=== PATIENT | male | born 1955 | race Caucasian/White ===

== ENCOUNTER 2017-05-11 16:55 | Emergency (ER) | payer MEDICARE, OTHER ==
[2017-05-11 16:56] VITALS: BMI 24.7
[2017-05-11 17:27] VITALS: BP 108/68; PULSE 58; RESP 18; TEMP 98; O2SAT 96
== END 2017-05-11 18:16 | disposition left against medical advice (07) ==
LOC: C.ER 16:55
DX: Z02.89 Encounter for other administrative examinations (principal); M79.603 Pain in arm, unspecified

== ENCOUNTER 2017-06-22 07:13 | Emergency (ER) | payer MEDICARE, OTHER ==
[2017-06-22 07:14] VITALS: BMI 24.7
[2017-06-22 07:26] VITALS: RESP 18
--- NOTE | 2017-06-22 07:42 | C.PDOC ---
History Of Present Illness 62-year-old homeless male, PMHx includes Schizophrenia, presents to the emergency department, stating "My left arm is jumping." Denies nausea/vomiting. No fever. Time Seen by Provider: 06/22/17 07:20 Chief Complaint (Nursing): Upper Extremity Problem/Injury History Per: Patient History/Exam Limitations: no limitations Onset/Duration Of Symptoms: Days Current Symptoms Are (Timing): Gone Quality: Dull Severity: None Exacerbating Factor(s): Nothing Recent travel outside of the [place]: No Past Medical History Reviewed: Historical Data, Nursing Documentation, Vital Signs Vital Signs: Last Vital Signs Temp 97.6 F 06/22/17 09:17 Pulse 53 L 06/22/17 09:17 Resp 18 06/22/17 07:19 BP 123/78 06/22/17 09:17 Pulse Ox 99 06/22/17 09:17 - Medical History PMH: Arthritis, Asthma, Cardia Arrhythmia (Bradycardia), CVA, Depression, HTN, Hyperlipidemia, Schizophrenia Denies: Chronic Kidney Disease [facility]) Family History: States: No Known Family Hx - Social History Hx Tobacco Use: Yes Hx Alcohol Use: No Hx Substance Use: No - Immunization History Hx Tetanus Toxoid Vaccination: No Hx Influenza Vaccination: No Hx Pneumococcal Vaccination: No Review Of Systems Except As Marked, All Systems Reviewed And Found Negative. Constitutional: Negative for: Fever Cardiovascular: Negative for: Chest Pain Gastrointestinal: Negative for: Vomiting Physical Exam - Physical Exam Appears: Non-toxic, No Acute Distress Skin: Warm, Dry, No Rash Head: Atraumatic, Normacephalic Eye(s): bilateral: Normal Inspection Nose: Normal Oral Mucosa: Moist Lips: Normal Appearing Neck: Normal ROM Cardiovascular: Rhythm Regular Respiratory: Normal Breath Sounds, No Accessory Muscle Use Gastrointestinal/Abdominal: Soft Extremity: Normal ROM, No Tenderness, No Deformity, No Swelling Pulses: Left Radial: Normal, Right Radial: Normal Neurological/Psych: Oriented x3, Normal Speech Gait: Steady ED Course And Treatment - Laboratory Results Result Diagrams: 06/22/17 07:56 06/22/17 07:56 Lab Interpretation: Normal O2 Sat by Pulse Oximetry: 98 Progress Note: Labs ordered. On re-evaluation ambulating with steady gait Reassessment Condition: Improved Disposition Counseled Patient/Family Regarding: Studies Performed, Diagnosis, Need For Followup - Disposition [facility] Disposition: HOME/ ROUTINE Disposition Time: 09:15 Condition: STABLE Additional Instructions: Follow up with clinic for further evaluation Instructions: Muscle Spasm (ED) Forms: [facility] (Yakut) Print Language: NEPALI - POA Present On Arrival: None - Clinical Impression Clinical Impression: Muscle strain, Muscle spasm - Scribe Statement The provider has reviewed the documentation as recorded by the Scribe (Joce Gunn) All medical record entries made by the Scribe were at my direction and personally dictated by me. I have reviewed the chart and agree that the record accurately reflects my personal performance of the history, physical exam, medical decision making, and the department course for this patient. I have also personally directed, reviewed, and agree with the discharge instructions and disposition.
[2017-06-22 08:00] LABS: BASO # 0.1 K/uL (0.0-0.2); BASO % 0.9 % (0.0-2.0); EOS # 0.2 K/uL (0.0-0.7); EOS % 2.4 % (0.0-4.0); HEMATOCRIT 42.2 % (35.0-51.0); LYMPH # 1.5 K/uL (1.0-4.3); LYMPH % 22.7 % (20.0-40.0); MEAN CELL VOLUME 88.2 fL (80.0-94.0); MEAN CORPUSCULAR HEMOGLOBIN 29.1 pg (27.0-31.0); MEAN CORPUSCULAR HGB CONC 33.1 g/dL (33.0-37.0); MEAN PLATELET VOLUME 8.2 fL (7.2-11.7); MONO # 0.5 K/uL (0.0-0.8); MONO % 7.5 % (0.0-10.0); RED CELL DISTRIBUTION WIDTH 12.3 % (11.5-14.5); WHITE BLOOD COUNT 6.5 K/uL (4.8-10.8)
[2017-06-22 08:08] LABS: CHLORIDE 103 mmol/L (98-107); SODIUM 142 mmol/L (132-148)
[2017-06-22 08:09] LABS: POTASSIUM 4.1 mmol/L (3.6-5.2)
[2017-06-22 08:11] LABS: GFR AFRICAN-AMERICAN > 60
[2017-06-22 08:12] LABS: BLOOD UREA NITROGEN 13 mg/dL (9-20); CALCIUM 8.5 mg/dl (8.6-10.4); CARBON DIOXIDE 26 mmol/L (22-30); GLUCOSE,RANDOM 117 mg/dL (75-110)
[2017-06-22 09:18] VITALS: BP 123/78; PULSE 53; TEMP 97.6
[2017-06-22 09:50] VITALS: O2SAT 98
== END 2017-06-22 09:45 | disposition home or self-care (01) ==
LOC: C.ER 07:13
DX: S46.912A Strain of unspecified muscle, fascia and tendon at shoulder and upper arm level, left arm, initial encounter (principal); X58.XXXA Exposure to other specified factors, initial encounter; M62.838 Other muscle spasm; Z59.0 Homelessness

== ENCOUNTER 2018-06-28 16:43 | Inpatient (IN) | payer MEDICARE, MEDICAID ==
[2018-06-28 16:43] VITALS: BMI 24.7
[2018-06-28 17:22] LABS: BASO # 0.1 K/uL (0.0-0.2); BASO % 0.8 % (0.0-2.0); EOS # 0.3 K/uL (0.0-0.7); EOS % 2.8 % (0.0-4.0); LYMPH # 1.7 K/uL (1.0-4.3); LYMPH % 14.9 % (20.0-40.0); MEAN CELL VOLUME 89.5 fL (80.0-94.0); MEAN CORPUSCULAR HEMOGLOBIN 30.1 pg (27.0-31.0); MEAN CORPUSCULAR HGB CONC 33.7 g/dL (33.0-37.0); MEAN PLATELET VOLUME 8.4 fL (7.2-11.7); MONO # 0.8 K/uL (0.0-0.8); MONO % 6.9 % (0.0-10.0); NEUT # 8.6 K/uL (1.8-7.0); NEUT % 74.6 % (50.0-75.0); NRBC % 0.1 % (0.0-2.0); RBC 5.35 Mil/uL (4.40-5.90); RED CELL DISTRIBUTION WIDTH 13.2 % (11.5-14.5)
[2018-06-28 17:25] LABS: HEMOGLOBIN 16.1 g/dL (12.0-18.0); WHITE BLOOD COUNT 11.6 K/uL (4.8-10.8)
[2018-06-28 17:34] LABS: URINE BILIRUBIN NEGATIVE (NEGATIVE); URINE BLOOD NEGATIVE (NEGATIVE); URINE CLARITY Hazy (Clear); URINE COLOR Yellow (YELLOW); URINE GLUCOSE (UA) NORMAL (Normal); URINE HYALINE CAST 0-2 /lpf (0-2); URINE LEUKOCYTE ESTERASE NEG Leu/uL (Negative); URINE PROTEIN NEGATIVE (NEGATIVE); URINE UROBILINOGEN NORMAL mg/dL (0.2-1.0)
--- NOTE | 2018-06-28 17:35 | C.PDOC ---
History Of Present Illness 63 year old male presents to the ED complaining suicidal ideation status post use of cocaine last night. Patient denies HI, chest pain, headaches, abdominal pain, or any other symptoms. Time Seen by Provider: 06/28/18 16:59 Chief Complaint (Nursing): Psychiatric Evaluation History Per: Patient History/Exam Limitations: no limitations Onset/Duration Of Symptoms: Mins Current Symptoms Are (Timing): Still Present Suicide/Self Injury Attempted (Context): None Modifying Factor(s): Cocaine Associated Symptoms: Suicidal Thoughts Past Medical History Reviewed: Historical Data, Nursing Documentation, Vital Signs Vital Signs: Last Vital Signs Temp 98 F 06/28/18 16:48 Pulse 85 06/28/18 16:48 Resp 16 06/28/18 16:48 BP 95/65 L 06/28/18 16:48 Pulse Ox 99 06/28/18 18:51 - Medical History PMH: Arthritis, Asthma, Cardia Arrhythmia (Bradycardia), CVA, Depression, HTN, Hyperlipidemia, Schizophrenia Denies: Chronic Kidney Disease Surgical History: No Surg Hx - [facility] GROUP PSYCHOTHERAPY (01/27/17) Family History: States: No Known Family Hx - Social History Hx Tobacco Use: Yes Hx Alcohol Use: Yes Hx Substance Use: Yes - Immunization History Hx Tetanus Toxoid Vaccination: No Hx Influenza Vaccination: No Hx Pneumococcal Vaccination: No Review Of Systems Except As Marked, All Systems Reviewed And Found Negative. Psych: Positive for: Suicidal ideation Physical Exam - Physical Exam Appears: Non-toxic, No Acute Distress Skin: Warm, Dry Head: Atraumatic, Normacephalic Eye(s): bilateral: Normal Inspection Nose: Normal Oral Mucosa: Moist Neck: Supple Chest: Symmetrical Cardiovascular: Rhythm Regular, No Murmur Respiratory: Normal Breath Sounds, No Rales, No Rhonchi, No Wheezing Extremity: Bilateral: Atraumatic, Normal Color And Temperature, Normal ROM Neurological/Psych: Oriented x3 Gait: Steady ED Course And Treatment - Laboratory Results Result Diagrams: 06/28/18 17:16 06/28/18 17:16 ECG: Interpreted By Me, Viewed By Me ECG Rhythm: Sinus Rhythm ECG Interpretation: No Acute Changes Interpretation Of ECG: normal intervals, normal axis, no st/t abnormalities. Rate From EC O2 Sat by Pulse Oximetry: 99 (RA) Pulse Ox Interpretation: Normal Medical Decision Making Medical Decision Making: Impression: suicidal ideation Orders: - Labs 1802 Patient is medically clear for Crisis. 1900 case s/o to Dr. Jama pending crisis evaluation. Disposition - Disposition Disposition Time: 19:00 Condition: STABLE Forms: [facility] (Chadian) - Clinical Impression Clinical Impression: Substance abuse - Scribe Statement The provider has reviewed the documentation as recorded by the Scribe Monica Fleming All medical record entries made by the Scribe were at my direction and personally dictated by me. I have reviewed the chart and agree that the record accurately reflects my personal performance of the history, physical exam, medical decision making, and the department course for this patient. I have also personally directed, reviewed, and agree with the discharge instructions and disposition. Physician Patient Turnover Patient Signed Over To: Michaela Jama Handoff Comments: pending crisis evaluation
[2018-06-28 17:37] LABS: ALB/GLOB RATIO 1.4 (1.0-2.1); ALBUMIN 5.2 g/dL (3.5-5.0); ALT/SGPT 11 U/L (21-72); AST/SGOT 27 U/L (17-59); BLOOD UREA NITROGEN 24 mg/dL (9-20); CALCIUM 9.9 mg/dl (8.6-10.4); GFR AFRICAN-AMERICAN 35; GFR NON-AFRICAN AMERICAN 29
[2018-06-28 17:45] LABS: BARBITURATES, UR NEGATIVE (NEGATIVE); OPIATES, UR NEGATIVE (NEGATIVE); PHENCYCLIDINE, UR NEGATIVE (NEGATIVE)
[2018-06-28 17:47] LABS: BENZODIAZEPINES, UR POSITIVE (NEGATIVE)
--- NOTE | 2018-06-29 01:17 | PCM.BM ---
<Jenny King - Last Filed: 06/29/18 01:14> Treatment Plan Problems - Problems identified on initial assessmt Depression Date Initiated: 06/28/18 Time Initiated: 23:30 Date resolved: 06/28/18 Assessment reference: NA Status: Active Substance abuse Date Initiated: 06/28/18 Time Initiated: 23:20 Date resolved: 06/28/18 Assessment reference: NA Status: Active (cocaine used) Treatment assets and liabiliti Patient Assests: cooperative (self informed), self-reliant, other (homeless) Patient Liabilities: poor support system (has a daugther who does not live in [place] ), substance abuse (cocaine), medical problems (Hx. of low HR) - Milieu Protocol Maintain good personal hygiene: daily Encourage regular showers, daily Remind patient to perform daily oral care, daily Assist patient to perform ADL's Maintain personal safety: every shift Educate patient to report safety concerns to staff, every shift Monitor environment for contraband/sharps Medication safety: Monitor for expected outcome, potential side effects: every shift, Assess barriers to learning: every shift, Assess readiness for medication education: every shift <Paula Dunham - Last Filed: 06/30/18 11:35> - Diagnosis (1) Bipolar disorder with psychotic features Status: Acute Interventions: 06/30/18 11:36 * Assess/adjust medications daily and /or as needed * See patient on an individual basis 7x/week to assess level of manic behaviors and stability * Discuss risks, benefits, side effects and alternatives of medications * (2) Substance abuse Status: Acute Interventions: 06/30/18 11:36 * Assess 7x/week regarding severity of withdrawal * Educate regarding risks, benefits, side effects and alternatives of medications * Use Motivational Interviewing for abstinence * Use CBT for relapse prevention * Medication management for withdrawal symptoms * Encourage medication assisted treatment * <Eileen Meyers - Last Filed: 06/30/18 13:37> Family Contact Family involvement: Famliy/SO not involved - Goals for Treatment Patient goals for treatment: "I need medication." Discharge/Continuing Care - Education Needs Education Needs: Patient Medication, Patient Coping Skills - Discharge Discharge Criteria: Tolerates medication w/o severe side effects, Free of Suicidal thoughts, Reduction of target symptoms Discharge to:: Home - Treatment Team Participation Discussed with Family/SO: No Was Patient/Family/SO present at Treatment Team Meeting: Yes
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
[2018-06-29] MEDS: Divalproex 250 mg DR Tab PO SCH (17:21)
[2018-06-30] MEDS: Divalproex 250 mg DR Tab PO SCH ×2 (10:03→17:18)
--- NOTE | 2018-06-30 15:18 | PCM.PYCHPN ---
Psychiatric Progress Note - Psychiatric Progress Note Patient seen today, length of contact: 15 min Patient Chief Complaint: I am still hearing voices.' Problems Identified/Issues Discussed: Patient seen and evaluated, chart reviewed and discussed with the nurse. Pt remained disorganized and internally preoccupied. He remained isolated and withdrawn, and confined to his room. He still reports of AH and appears delusional and paranoid. Patient is compliant with medications and denies any side effects. Symptoms are improving but pt needs more time to stabilize. Support and psychoeducation given. Medication Change: Yes Medical Record Reviewed: Yes Mental Status Examination - Cognitive Function Orientation: Person, Place, Situation, Time Memory: Intact Attention: WNL Concentration: Poor Association: Loose Fund of Knowledge: Poor - Mood Mood: Depressed, Anxious - Affect Affect: Constricted, Depressed - Speech Speech: Soft - Formal Thought Process Formal Thought Process: Hallucinations, Delusions, Paranoia, Loosening of associations, Flight of ideas - Suicidal Ideation Suicidal Ideation: No - Homicidal Ideation Homicidal Ideation: No Goal/Treatment Plan - Goal/Treatment Plan Need for Continued Stay: Severe depression anxiety, Severe functional impairment Progress Toward Problem(s) and Goals/Treatment Plan: Bipolar disorder mixed severe with psychotic features Cocaine use disorder severe CBT Psychoeducation Supportive therapy, milieu therapy Depakote 250 mg by mouth twice a day Increase Olanzapine 10 mg by mouth twice a day Trazodone 100 mg by mouth daily at bedtime Ativan 1 mg by mouth every 6 hours when necessary Gabapentin 300 mg by mouth twice a day - Smoking Cessation Smoking Cessation Initiated: No
[2018-07-01] MEDS: Divalproex 250 mg DR Tab PO SCH ×2 (09:51→18:59)
[2018-07-02] MEDS ORDERED: Pneumococcal 23-Valent Vaccine IM ONE (01:22)
[2018-07-02] MEDS: Divalproex 250 mg DR Tab PO SCH ×2 (10:39→17:29)
[2018-07-03 06:46] VITALS: TEMP 97.8; O2SAT 97
[2018-07-03] MEDS: Divalproex 250 mg DR Tab PO SCH ×2 (10:26→18:01)
--- NOTE | 2018-07-04 00:17 | PCM.PYCHPN ---
Psychiatric Progress Note - Psychiatric Progress Note Patient seen today, length of contact: 15 min Patient Chief Complaint: I m still hearing voices, but lesser than before.' Problems Identified/Issues Discussed: Patient seen and evaluated, chart reviewed and discussed with the nurse. Pt appears somewhat more organized and less internally preoccupied. He still reports of AH, but lesser in quantity. He still appears delusional and paranoid. He remained isolated and withdrawn, and confined to his room. Patient is compliant with medications and denies any side effects. Symptoms are improving but pt needs more time to stabilize. Support and psychoeducation given. Medication Change: Yes Medical Record Reviewed: Yes Mental Status Examination - Cognitive Function Orientation: Person, Place, Situation, Time Memory: Intact Attention: WNL Concentration: Poor Association: Loose Fund of Knowledge: Poor - Mood Mood: Depressed, Anxious - Affect Affect: Constricted, Depressed - Speech Speech: Soft - Formal Thought Process Formal Thought Process: Hallucinations, Delusions, Paranoia, Loosening of associations, Flight of ideas - Suicidal Ideation Suicidal Ideation: No - Homicidal Ideation Homicidal Ideation: No Goal/Treatment Plan - Goal/Treatment Plan Need for Continued Stay: Severe depression anxiety, Severe functional impairment Progress Toward Problem(s) and Goals/Treatment Plan: Bipolar disorder mixed severe with psychotic features Cocaine use disorder severe CBT Psychoeducation Supportive therapy, milieu therapy Increase Depakote 500 mg by mouth twice a day Increase Risperdal 2 mg PO BID Trazodone 100 mg by mouth daily at bedtime Ativan 1 mg by mouth every 6 hours when necessary Gabapentin 300 mg by mouth twice a day - Smoking Cessation Smoking Cessation Initiated: No
[2018-07-04 06:48] VITALS: BP 108/68; PULSE 79; RESP 20
[2018-07-04] MEDS ORDERED: Divalproex 500 mg DR Tab PO SCH (10:00)
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
== END 2018-07-04 11:45 | disposition home or self-care (01) | DRG 885 ==
LOC: C.ER 16:43 → C.5E 21:43
PROVIDERS: ADMIT Psychiatry & Neurology Psychiatry; ATTEND Psychiatry & Neurology Psychiatry
PROC: GZHZZZZ Group Psychotherapy (ICD-10-PCS; principal; 2018-06-28)
PROC: GZ58ZZZ Individual Psychotherapy, Cognitive-Behavioral (ICD-10-PCS; 2018-06-28)
PROC: GZ56ZZZ Individual Psychotherapy, Supportive (ICD-10-PCS; 2018-06-28)
PROC: HZ52ZZZ Individual Psychotherapy for Substance Abuse Treatment, Cognitive-Behavioral (ICD-10-PCS; 2018-06-28)
PROC: HZ59ZZZ Individual Psychotherapy for Substance Abuse Treatment, Supportive (ICD-10-PCS; 2018-06-28)
PROC: HZ56ZZZ Individual Psychotherapy for Substance Abuse Treatment, Psychoeducation (ICD-10-PCS; 2018-06-28)
PROC: HZ42ZZZ Group Counseling for Substance Abuse Treatment, Cognitive-Behavioral (ICD-10-PCS; 2018-06-28)
PROC: HZ46ZZZ Group Counseling for Substance Abuse Treatment, Psychoeducation (ICD-10-PCS; 2018-06-28)
DX: F31.64 Bipolar disorder, current episode mixed, severe, with psychotic features (principal); R45.851 Suicidal ideations; F14.20 Cocaine dependence, uncomplicated; E78.5 Hyperlipidemia, unspecified; I10 Essential (primary) hypertension; J45.909 Unspecified asthma, uncomplicated; F41.8 Other specified anxiety disorders; Z86.73 Personal history of transient ischemic attack (TIA), and cerebral infarction without residual deficits; Z87.891 Personal history of nicotine dependence